=== PATIENT | male | born 1990 | race African-American/Black ===

== ENCOUNTER 2022-03-06 14:18 | Emergency (ER) | payer OTHER ==
[~2022-03-06] VITALS: Ht 162.6 cm; Wt 84.0 kg
[2022-03-06 15:05] VITALS: BP 146/105
[2022-03-06] MEDS ORDERED: METH-653 MT (16:47)
[2022-03-06] MEDS ORDERED: IBUP-2029 MT (16:47)
== END 2022-03-06 16:57 | disposition home or self-care (01) ==
LOC: ER 15:48
DX: S16.1XXA Strain of muscle, fascia and tendon at neck level, initial encounter (principal); X58.XXXA Exposure to other specified factors, initial encounter; Y93.89 Activity, other specified; Y92.89 Other specified places as the place of occurrence of the external cause; Y99.8 Other external cause status
CPT/HCPCS: 99283